=== PATIENT | female | born 1995 | race Two or more races ===

== ENCOUNTER 2023-02-06 14:06 | Inpatient (IN) ==
[2023-02-06] MEDS ORDERED: LIDOCAINE 1% LOCAL 20 ML VIAL INFIL PRN (15:18)
[2023-02-06] MEDS ORDERED: OXYTOCIN 30 UNITS/NSS 30 UNITS/500 ML BAG IV PRN ×2 (15:18→23:10)
--- NOTE | 2023-02-06 15:25 | History & Physical Report ---
Date of Service February 06, 2023 Assessment & Plan (1) 39 weeks gestation of : (2) Amniotic fluid leaking: Plan admit, iv, labs. fhts categ 1. expectant mgmt. History of Present Illness Chief Complaint: regular ctx, then leaking at approx 3pm Primary Care Provider: NO PCP 27yo at 39+wks lindsey presents to L&D from home with regular ctx and while in room, +SROM clear fluid at 258pm today. Notes ctx are regular. no vb. PNC uncomplicated. PNL rh pos, ri, gbs neg OBH: g1 GYNH: no stds, nl pap Allergies Allergy/AdvReac Type Severity Reaction Status Date / Time latex Allergy Rash Verified 02/04/23 10:05 wheat Allergy Gastrointestinal Verified 02/04/23 10:05 Upset Home Medications Medication Instructions Recorded Confirmed Type prenat.vits,collette,[id number] 1 tab PO DAILY 07/10/22 02/04/23 History amoxicillin 875 mg-potassium 1 tab PO Q12H #14 tabs 01/21/23 02/04/23 Rx clavulanate 125 mg tablet Patient History Medical History (Updated 02/06/23 @ 15:23 by Renae Brown MD, FACOG) Ovarian cyst Varicella vaccination Surgical History (Updated 07/10/22 @ 14:16 by Yakelin Nevarez) No history of previous surgery Family History (Updated 07/10/22 @ 14:08 by Yakelin Nevarez) Denies family history of Ovarian cancer Breast cancer Colorectal cancer Social History (Updated 07/10/22 @ 14:09 by Yakelin Nevarez) Smoking Status: Never smoker Second Hand Exposure: No; Do You Dip or Chew Tobacco: No; Tobacco Cessation Education Requested by Patient: No Hx Alcohol Use: Yes Hx Substance Use: No Preferred Language: Malaysian Communication Ability: Effective Lump Maker Required: No Beliefs That Will Affect Care: None marital status: Single marital status details: boubacar Mistry (23) [phone] Current Living Situation: Significant Other Current Living Situation Comment: lives with peter hamlin current occupational status: employed 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 Other Information That Helps Us Care for You: No Feels Safe at Home: Yes Safety Concerns: Feels Safe At This Time Assistive Devices: None Review of Systems as per Subjective / HPI Physical Exam Constitutional: WD/WN, vitals as above Respiratory: normal respiratory effort, lungs clear to auscultation Cardiovascular: Rate/Rhythm: regular rate and regular rhythm Gastrointestinal (Abdomen): soft gravid nt Musculoskeletal: no edema nontender calves Neurologic: grossly normal Psychiatric: A+Ox3, euthymic affect Genitourinary: Manual OB Exam: + cervical dilation 2 cm, + cervical effacement 50%, + station -2 and + amniotic fluid (gross srom, forebag arom) clear OB E xam Monitor Tracing: + external FHT monitor used, + external uterine monitor used (q2-3), + category I and + normal FHT variability Results & Data Vital Signs (Past 12 Hours) Vital Signs Temp Pulse Resp BP 02/06/23 14:37 97.7 F 101 H 20 131/78 02/06/23 14:08 101 H 131/78 Coding Level of Care Code None Diagnoses 39 weeks gestation of Z3A.39 Amniotic fluid leaking O42.90
[2023-02-06 15:46] LABS: Hematocrit (blood only) 37.2 % (37.0-47.0); Hemoglobin 11.9 g/dl (12.0-16.0); Mean Corpuscular Hemoglobin 25.8 pg (25.0-34.0); Mean Corpuscular Volume 80.5 fL (80.0-100.0); Mean Platelet Volume 10.7 fL (9.4-12.4); Platelet Count 250 K/uL (130-400); RDW Standard Deviation 52.1 fL (36.4-46.3); Red Blood Count 4.62 M/uL (4.20-5.40); White Blood Count 11.95 K/ul (4.8-10.8)
--- NOTE | 2023-02-06 18:02 | Labor Progress Brief Note ---
Date of Service February 06, 2023 Subjective still feeling strong ctx Assessment & Plan (1) 39 weeks gestation of : (2) Amniotic fluid leaking: Plan making cx change. fhts categ 1. cont current mgmt. Admission and Anticipated Discharge Date Admission Date: February 06, 2023 Physical Exam Constitutional: WD/WN, vitals as above Genitourinary: Manual OB Exam: + cervical dilation 3 cm, + cervical effacement 90% and + station -2 OB Exam Monitor Tracing: + external FHT monitor used, + external uterine monitor used (q2-3), + category I and + normal FHT variability Results & Data Vital Signs (Past 12 Hours) Vital Signs Temp Pulse Resp BP 02/06/23 17:28 18 02/06/23 17:28 97.5 F L 18 02/06/23 14:37 97.7 F 101 H 20 131/78 02/06/23 14:08 101 H 131/78 Coding Level of Care Code None Diagnoses 39 weeks gestation of Z3A.39 Amniotic fluid leaking O42.90
[2023-02-06] MEDS ORDERED: BUTORPHANOL TARTRATE 1 MG/ML VIAL IV ONE (23:07)
[2023-02-06] MEDS: LACTATED RINGER'S 1,000 ML IV PRN (23:38)
--- NOTE | 2023-02-07 00:43 | Labor Progress Brief Note ---
Date of Service February 07, 2023 Subjective alot of pain with ctx, but ctx infrequent. had stadol. Assessment & Plan (1) 39 weeks gestation of : (2) Amniotic fluid leaking: Plan no cx change and no regular ctx. needs pitocin. considering epidural but unsure. fhts categ 1. Admission and Anticipated Discharge Date Admission Date: February 06, 2023 Physical Exam Constitutional: WD/WN, vitals as above Genitourinary: Manual OB Exam: + cervical dilation 5 cm, + cervical effacement 100% and + station 0 OB Exam Monitor Tracing: + external FHT monitor used, + external uterine monitor used (q8 min), + category I and + normal FHT variability Results & Data Vital Signs (Past 12 Hours) Vital Signs Temp Pulse Resp BP 02/06/23 23:37 71 02/06/23 23:37 127/62 02/06/23 23:30 18 02/06/23 23:30 99.0 F 18 02/06/23 19:11 67 02/06/23 19:11 141/81 H 02/06/23 19:10 18 02/06/23 19:10 98.1 F 18 02/06/23 17:28 18 02/06/23 17:28 97.5 F L 18 02/06/23 14:37 97.7 F 101 H 20 131/78 02/06/23 14:08 101 H 131/78 Coding Level of Care Code None Diagnoses 39 weeks gestation of Z3A.39 Amniotic fluid leaking O42.90
[2023-02-07] MEDS ORDERED: SODIUM CHLORIDE 0.9% PF INJ 10 ML VIAL ONE (00:49)
[2023-02-07] MEDS ORDERED: BUPIVACAINE 0.25% PF 30 ML VIAL ONE (00:49)
[2023-02-07] MEDS ORDERED: fentaNYL citrate PF 100 MCG/2 ML VIAL ONE (00:49)
[2023-02-07] MEDS ORDERED: fentANYL 2 MCG/ML BUPIVacaine 0.125%-NSS 100ML BAG ONE (00:49)
[2023-02-07] MEDS ORDERED: ePHEDrine sulfate 50 MG/ML AMP ONE (00:49)
[2023-02-07] MEDS ORDERED: LIDOCAINE 2%/EPINEPHRINE 1:200,000 20 ML PF ONE (00:50)
--- NOTE | 2023-02-07 01:12 | Anesthesiology Consultation ---
Date of Service February 07, 2023 Assessment & Plan Chart Review Chart Review: Patient NOT seen in Pre Admission Testing and Acceptable Risk for Labor Epidural Consults Requested none ASA ASA2 Proposed Anesthesia Anesthesia Type: Labor Epidural Risk / Benefits Reviewed With: PT / POA / Parent / Guardian, Accepts Plan and Informed Consent Obtained History Height/Weight Height: 5 ft Weight: 62.959 kg Allergies Allergy/AdvReac Type Severity Reaction Status Date / Time latex Allergy Rash Verified 02/04/23 10:05 wheat Allergy Gastrointestinal Verified 02/04/23 10:05 Upset Medications Home Medications Medication Instructions Recorded Confirmed Last Taken prenat.vits,collette,[id number] 1 tab PO DAILY 07/10/22 02/06/23 02/05/23 amoxicillin 875 mg-potassium 1 tab PO Q12H #14 tabs 01/21/23 02/04/23 Unknown clavulanate 125 mg tablet Active Medications Generic Name Dose Route Start Last Admin Trade Name Freq PRN Reason Stop Dose Admin Lactated Ringer's 1,000 mls @ 125 mls/hr 02/06/23 15:18 02/07/23 00:30 Lr IV 02/08/23 15:17 999 mls/hr .Q8H PRN Infusion L&D Protocol Protocol NPO Date Last Intake of Fluids: 02/07/23 Time Last Intake of Fluids: 01:00 Date Last Intake of Solids: 02/06/23 Time Last Intake of Solids: 12:30 Past Medical History Medical History Ovarian cyst Varicella vaccination Exercise / Class Metabolic Activity II 4-5 Yardwork/Stairs/Walk up hill Past Family History Family History Denies family history of Ovarian cancer Breast cancer Colorectal cancer Past Surgical History Surgical History No history of previous surgery Past Anesthesia History No Hx of Anesthesia Complications and No Family Hx of Anesthesia Complications History of PONV No Hx of PONV and No Hx of Motion Sickness Social History Smoking Status: Never smoker Do You Dip or Chew Tobacco: No Hx Alcohol Use: Yes Hx Substance Use: No substance use type: does not use Review of Systems ROS Unobtainable: All systems reviewed & are unremarkable except as noted in HPI & below Physical Exam Vital Signs Last Vital Signs Temp 37.2 C 02/06/23 23:30 Pulse 71 02/06/23 23:37 Resp 18 02/06/23 23:30 BP 127/62 02/06/23 23:37 ENMT Mouth: no TMJ abnormality Thyromental Distance: > or= 3.5 Finger Breadths Mallampati Class: II Neck normal visual inspection and trachea midline; neck extension not limited Respiratory normal respiratory effort Auscultation: lungs clear to auscultation bilaterally Cardiovascular Rate/Rhythm: regular rate and regular rhythm Heart Sounds: no murmur Musculoskeletal Spine: normal cervical ROM Extremities: full ROM of extremities Neurologic moves all extremities Psychiatric Orientation: alert and oriented x 3 Testing Laboratory Results 02/06/23 15:29
[2023-02-07] MEDS ORDERED: SODIUM CHLORIDE 0.9% PF INJ 10 ML VIAL EPI STA (01:35)
[2023-02-07] MEDS ORDERED: fentaNYL citrate PF 100 MCG/2 ML VIAL EPI STA (01:35)
[2023-02-07] MEDS ORDERED: LIDOCAINE 2% MPF LOCAL 5 ML VIAL EPI PRN (01:35)
[2023-02-07] MEDS ORDERED: NALBUPHINE HCL 5 MG in SYRINGE 0 ML IV PRN (01:35)
[2023-02-07] MEDS ORDERED: diphenhydrAMINE 50 MG/ML VIAL IV PRN (01:35)
[2023-02-07] MEDS ORDERED: LIDOCAINE 2%/EPINEPHRINE 1:200,000 20 ML PF EPI STA (01:35)
[2023-02-07] MEDS ORDERED: BUPIVACAINE 0.25% PF 30 ML VIAL EPI PRN (01:35)
[2023-02-07] MEDS ORDERED: ePHEDrine sulfate 50 MG/ML AMP IV PRN (01:35)
[2023-02-07] MEDS ORDERED: BUPIVACAINE 0.25% PF 30 ML VIAL EPI STA (01:35)
[2023-02-07] MEDS ORDERED: NALOXONE HCL 0.4 MG/1 ML VIAL/CARP IV PRN (01:35)
[2023-02-07] MEDS ORDERED: NALOXONE HCL 1 MG in SODIUM CHLORIDE 0.9% 1,000 ML IV PRN (01:35)
[2023-02-07] MEDS ORDERED: SODIUM CHLORIDE 0.9% PF INJ 10 ML VIAL EPI PRN (01:35)
[2023-02-07] MEDS ORDERED: fentaNYL citrate PF 100 MCG/2 ML VIAL EPI PRN (01:35)
[2023-02-07] MEDS ORDERED: fentANYL 2 MCG/ML BUPIVacaine 0.125%-NSS 100ML BAG EPI PRN (01:35)
[2023-02-07] MEDS ORDERED: ROPIVACAINE 0.5% PF 5 MG/ML 20 ML VIAL EPI PRN (01:35)
[2023-02-07] MEDS: LACTATED RINGER'S 1,000 ML IV PRN (01:38)
--- NOTE | 2023-02-07 03:38 | Labor Progress Brief Note ---
Date of Service February 07, 2023 Subjective urge to push Assessment & Plan (1) 39 weeks gestation of : (2) Amniotic fluid leaking: Plan begin 2nd stage. fhts categ 1. Admission and Anticipated Discharge Date Admission Date: February 06, 2023 Physical Exam Constitutional: WD/WN, vitals as above Genitourinary: Manual OB Exam: + cervical dilation 10 cm, + cervical effacement 100% and + station + 2 OB Exam Monitor Tracing: + external FHT monitor used, + external uterine monitor used, + category I, + normal FHT variability and + early decelerations present Results & Data Vital Signs (Past 12 Hours) Vital Signs Temp Pulse Resp BP Pulse Ox 02/07/23 03:31 143 H 98 02/07/23 03:26 102 H 97 02/07/23 03:21 123 H 99 02/07/23 03:16 103 H 98 02/07/23 03:12 91 H 100 02/07/23 03:07 67 109/58 L 02/07/23 03:06 66 100 02/07/23 03:02 76 99 02/07/23 03:00 18 02/07/23 03:00 98.6 F 18 02/07/23 02:56 64 100 02/07/23 02:52 66 98/50 L 02/07/23 02:51 58 L 99 02/07/23 02:46 81 99 02/07/23 02:41 115 H 100 02/07/23 02:37 75 94 02/07/23 02:36 73 97 02/07/23 02:31 81 98 02/07/23 02:26 60 97 02/07/23 02:22 91 H 108/59 L 02/07/23 02:21 79 95 02/07/23 02:16 55 L 97 02/07/23 02:11 75 96 02/07/23 02:07 56 L 103/55 L 02/07/23 02:06 61 96 02/07/23 02:02 81 96 02/07/23 02:00 18 02/07/23 02:00 18 02/07/23 01:56 60 96 02/07/23 01:52 88 108/58 L 02/07/23 01:51 81 96 02/07/23 01:46 63 95 02/07/23 01:41 84 97 02/07/23 01:37 91 H 97 02/07/23 01:35 81 111/57 L 02/07/23 01:32 80 115/59 L 02/07/23 01:31 79 98 02/07/23 01:29 80 121/64 02/07/23 01:26 98 02/07/23 01:26 78 02/07/23 01:26 77 132/71 02/07/23 01:23 87 02/07/23 01:23 76 152/71 H 91 02/07/23 01:22 74 100 02/07/23 01:21 71 136/74 02/07/23 01:17 69 100 02/07/23 01:12 64 98 02/06/23 23:37 71 02/06/23 23:37 127/62 02/06/23 23:30 18 02/06/23 23:30 99.0 F 18 02/06/23 19:11 67 02/06/23 19:11 141/81 H 02/06/23 19:10 18 02/06/23 19:10 98.1 F 18 02/06/23 17:28 18 02/06/23 17:28 97.5 F L 18 Coding Level of Care Code None Diagnoses 39 weeks gestation of Z3A.39 Amniotic fluid leaking O42.90
--- NOTE | 2023-02-07 04:20 | Delivery Summary ---
Vaginal Delivery Summary Date of Service February 07, 2023 Vaginal Delivery Summary The patient dilated to complete and pushed to deliver a viable female infant Apgars 9 and 9 via over intact perineum. Mouth and nose bulb suctioned at perineum. Shoulders and body delivered with ease. was vigorous and crying at . Cord clamped at 30 seconds of life and infant to maternal abdomen where the cord was then doubly clamped and cut. Placenta delivered spontaneously and intact, three-vessel cord. Hemostasis achieved with dilute pitocin and uterine massage and drainage of the bladder for approximately 100 cc under sterile conditions. Cervix and sulci intact. EBL 300 cc. Mother and baby stable in recovery. [facility] Vaginal Delivery Charge Delivery Type Details:
[2023-02-07] MEDS ORDERED: oxyCODONE/ACETAMINOPHEN 5mg/325mg TAB PO PRN (04:23)
[2023-02-07] MEDS ORDERED: OXYTOCIN 30 UNITS/NSS 30 UNITS/500 ML BAG IV PRN (04:23)
[2023-02-07] MEDS ORDERED: BENZOCAINE 20% SPRY 85 APPLN/85 GM CAN EXT PRN (04:23)
[2023-02-07] MEDS ORDERED: HYDROCORTISONE ACETATE 25 MG SUPP PR PRN (04:23)
[2023-02-07] MEDS ORDERED: DIPHTHERIA/TETANUS/PERTUSSIS Vaccine (Tdap, Age 7+yrs) 0.5mL SYR/VL IM ONE (04:23)
[2023-02-07] MEDS ORDERED: IBUPROFEN 600 MG TAB PO PRN (04:23)
[2023-02-07] MEDS ORDERED: ACETAMINOPHEN 325 MG TAB PO PRN (04:23)
--- NOTE | 2023-02-07 04:48 | Anesthesia Procedure Note ---
Date of Service February 07, 2023 Anesthesia Post Epidural Note Vital Signs Vital Signs: Temp Pulse Resp BP Pulse Ox 37.0 C 91 H 18 114/58 L 96 02/07/23 03:00 02/07/23 04:34 02/07/23 04:00 02/07/23 04:34 02/07/23 04:06 Notes Mental Status: alert / awake / arousable and participated in evaluation Nausea / Vomiting: adequately controlled Pain: adequately controlled Airway Patency, RR, SpO2: stable & adequate BP & HR: stable & adequate Hydration State: stable & adequate Neuraxial Anesthesia: was administered and sensory block is resolving Anesthetic Complications: no major complications apparent Epidural: Removed without complications and With tip intact
[2023-02-07] MEDS: OXYTOCIN 20 UNITS/LR 1,002 ML IV SCH ×2 (05:46→15:09)
[2023-02-07] MEDS: PRENATAL VITAMIN 1 TAB PO SCH (15:07)
[2023-02-07] MEDS: DOCUSATE SODIUM 100 MG CAP PO SCH ×2 (15:07→21:42)
--- NOTE | 2023-02-08 04:55 | Obstetrical Progress Note ---
Date of Service <Aman Caro DO - Last Filed: 02/08/23 06:05> February 08, 2023 Assessment & Plan <Aman Caro DO - Last Filed: 02/08/23 06:05> (1) care following vaginal delivery: Plan 27 year old , PPD#1: Eating well, voiding well, ambulating well Vitals reviewed, WNL Pain well controlled without analgesics Routine care - OOB, ambulation, diet progression as tolerated Will have 6 week follow up with Dr. Brown <Regla Shine MD - Last Filed: 02/08/23 08:08> (1) care following vaginal delivery: Subjective <Aman Caro DO - Last Filed: 02/08/23 06:05> Ambulation: ambulating normally Voiding: no voiding problems Passing Gas:: Yes Diet Tolerance:: regular diet Lochia:: Small Feeding Type:: breast feeding pain well controlled without analgesics Review of Systems -Denies fever or chills -Denies dyspnea, chest pain, or palpitations -Denies dysuria -Denies headache or changes in vision Physical Exam <Aman Caro DO - Last Filed: 02/08/23 06:05> General: Alert and oriented. No acute distress Cardiac: Regular rate and rhythm, no murmurs appreciated Respiratory: Lungs clear to auscultation bilaterally, No increased work of breathing Abdominal: Soft, non-tender, non-distended. Bowel sounds present. Uterus: Uterine fundus firm, palpable below umbilicus Extremities: No lower extremity edema, calves non-tender bilaterally Results & Data <Aman Caro DO - Last Filed: 02/08/23 06:05> Vital Signs (Past 12 Hours) Vital Signs Temp Pulse Resp BP Pulse Ox O2 Del Method 02/08/23 03:50 36.7 C 71 16 112/54 L 97 Room Air 02/07/23 23:50 36.7 C 72 16 112/50 L 97 Room Air 02/07/23 21:00 36.7 C 72 18 119/55 L 97 Room Air Supervising Physician <Regla Shine MD - Last Filed: 02/08/23 08:08> Co-Signing Physician Notes Resident Physician Supervision Note: I interviewed and examined the patient. Discussed with Dr. Caro and agree with findings and plan as documented in the note. Any exceptions or clarifications are listed here: PP1 s/p , doing well. VSS, exam benign and wnl. Desires dc home today Documented By: Regla Shine MD Resident Activity Tracking <Aman Caro, - Last Filed: 02/08/23 06:05> Resident Involvement: Resident Care Provided Care Provided: OB Delivery
[2023-02-08] MEDS: PRENATAL VITAMIN 1 TAB PO SCH (07:59)
[2023-02-08] MEDS: DOCUSATE SODIUM 100 MG CAP PO SCH (11:11)
[2023-02-09] MEDS ORDERED: bisacodyL 10 MG SUPP PR PRN (04:23)
== END 2023-02-08 12:33 | disposition home or self-care (01) | DRG 807 ==
LOC: OPB 14:06 → 4S1 14:07 → 4E1 02-07 06:45